=== PATIENT | male | born 2000 | race Caucasian/White ===

== ENCOUNTER 2022-07-19 14:29 | Emergency (ER) | payer BC ==
[~2022-07-19] VITALS: Ht 175.3 cm; Wt 75.8 kg
[2022-07-19 14:29] VITALS: BP 149/76
== END 2022-07-19 18:09 | disposition left against medical advice (07) ==
LOC: M ED 14:29
DX: Z53.21 Procedure and treatment not carried out due to patient leaving prior to being seen by health care provider (principal)

== ENCOUNTER 2025-05-26 18:23 | Inpatient (IN) | payer BC ==
[~2025-05-26] VITALS: Ht 175.3 cm; Wt 91.0 kg
[2025-05-26 19:51] LABS: PLATELET COUNT, AUTOMATED 313 10^3/uL (150-450)
[2025-05-26 20:20] LABS: AMPHETAMINES LEVEL URINE NEGATIVE (NEGATIVE); BARBITURATES URINE NEGATIVE (NEGATIVE)
[2025-05-26 20:21] LABS: BENZODIAZEPINES URINE NEGATIVE (NEGATIVE); CANNABINOIDS URINE NEGATIVE (NEGATIVE); METHADONE URINE NEGATIVE (NEGATIVE); OPIATES URINE NEGATIVE (NEGATIVE); PHENCYCLIDINE URINE NEGATIVE (NEGATIVE)
[2025-05-26 20:22] LABS: COCAINE METABOLITE URINE POSITIVE (NEGATIVE)
[2025-05-26 20:23] LABS: ETHYL ALCOHOL (ETHANOL) < 0.003 % (0.000-0.010)
[2025-05-26 20:25] LABS: SALICYLATE LEVEL < 3.0 MG/DL (<30)
[2025-05-26 20:28] LABS: ALT/SGPT 28 U/L (7.0-40); AST/SGOT 20 U/L (<34); CALCIUM LEVEL 10.1 MG/DL (8.5-10.1); CARBON DIOXIDE LEVEL 28 MMOL/L (20-31); CHLORIDE LEVEL 104 MMOL/L (98-107); CREATININE FOR GFR 0.89 MG/DL (0.70-1.30); GLOMERULAR FILTRATION RATE > 90.0 (>60); POTASSIUM SERUM 4.0 MMOL/L (3.5-5.1); SODIUM LEVEL 145 MMOL/L (136-145)
[2025-05-27] MEDS: ALPRAZolam 0.5 MG TAB PO ONE (01:13)
[2025-05-27] MEDS ORDERED: traZODone 50 MG TAB PO PRN (03:45)
[2025-05-27] MEDS ORDERED: ACETAMINOPHEN 325 MG TAB PO PRN (03:45)
[2025-05-27] MEDS ORDERED: MOM 30 ML SUSPENSION UDC PO PRN (03:45)
[2025-05-27] MEDS ORDERED: MAALOX 30 ML SUSP *UDC PO PRN (03:45)
[2025-05-27 04:41] VITALS: BP 112/72; TEMP 97; O2SAT 98
[2025-05-27] MEDS: IBUPROFEN 400 MG TAB PO PRN (14:10)
[2025-05-27 16:28] VITALS: BP 126/84; TEMP 97.6; O2SAT 98
[2025-05-27] MEDS: traZODone 50 MG TAB PO SCH (20:26)
[2025-05-28 06:24] VITALS: BP 142/65; TEMP 97.6; O2SAT 100
[2025-05-28] MEDS: buPROPion **XL** 150 MG TABLET PO SCH (09:06)
[2025-05-28 14:26] VITALS: BP 142/65; TEMP 97.6; O2SAT 100
[2025-05-28 15:36] VITALS: BP 151/87; TEMP 97.3; O2SAT 100
[2025-05-29] MEDS ORDERED: traZODone 50 MG TAB PO PRN (06:40)
[2025-05-29] MEDS ORDERED: BUPR150T12 PO (06:42)
[2025-05-29] MEDS ORDERED: TRAZ-252 PO (06:42)
[2025-05-29] MEDS ORDERED: HYDR-3363 PO (06:42)
[2025-05-29] MEDS ORDERED: ABIL1TAB11 PO (06:42)
[2025-05-29 06:45] VITALS: BP 146/85; TEMP 97.8; O2SAT 97
== END 2025-05-29 11:01 | disposition home or self-care (01) | DRG 753 ==
LOC: M ED 18:23 → M ED INP 05-27 03:42 → M PSY 05-27 04:10
PROVIDERS: ADMIT Psychiatry & Neurology Neurology; ATTEND Psychiatry & Neurology Neurology
DX: F31.81 Bipolar II disorder (principal); F41.1 Generalized anxiety disorder; F41.0 Panic disorder [episodic paroxysmal anxiety]; F10.10 Alcohol abuse, uncomplicated; R45.851 Suicidal ideations; Z65.8 Other specified problems related to psychosocial circumstances